=== PATIENT | female | born 1940 | race Caucasian/White ===

== ENCOUNTER 2023-09-16 08:14 | Emergency (ER) | payer MEDICARE ==
[2023-09-16 08:22] VITALS: RESP 18; TEMP 97.3
[2023-09-16] MEDS: SODIUM CHLORIDE 0.9% 1,000 ML IV STA (08:40)
--- NOTE | 2023-09-16 08:42 | ED ---
Syncope HPI - General Chief Complaint: Syncope Stated Complaint: syncope,arm lac Time Seen by Provider: 09/16/23 08:22 Source: patient, RN notes reviewed Mode of arrival: wheelchair Limitations: no limitations - History of Present Illness Initial Comments: This is an 83 year old female who presents to the emergency department for a syncopal episode. Patient lives in [place] and a couple of days ago flew into [place]. After getting off of the plane she had a syncopal episode. Over the last couple of days she has had more syncopal episodes, lasting anywhere from a couple of seconds to a couple of minutes. Unsure if she hit her head this time, but has hit her head in the past. Not taking any blood thinners. Currently complaining of pain to the right lower leg and right arm where she has skin tears. She feels the syncopal episodes coming on, but states that it happens very quickly. Denies any chest pain or shortness of breath associated with this. States that she has a brain tumor but is unsure what kind. She has been on various medications for this and 5 days ago was started on Memantine, which she believes may be the cause of the syncopal episodes. Prior to the last few days she has never experienced syncopal episodes. - Related Data Previous Rx's Medication Instructions Recorded cefUROXime axetiL [Ceftin] 500 mg PO BID 7 Days #14 tab 09/16/23 Allergies Allergy/AdvReac Type Severity Reaction Status Date / Time codeine AdvReac Rapid Verified 09/16/23 08:22 Heart Rate Review of Systems ROS Statement: Those systems with pertinent positive or pertinent negative responses have been documented in the HPI. ROS Other: All systems not noted in ROS Statement are negative. Past Medical History Past Medical History: Hypertension, Thyroid Disorder Additional Past Surgical History / Comment(s): right hip replacement Past Psychological History: No Psychological Hx Reported Smoking Status: Former smoker Past Alcohol Use History: Rare Past Drug Use History: None Reported General Exam Limitations: no limitations General appearance: alert, in no apparent distress Head exam: Present: atraumatic, normocephalic, normal inspection Eye exam: Present: normal appearance, PERRL, EOMI. Absent: scleral icterus, conjunctival injection, periorbital swelling Respiratory exam: Present: normal lung sounds bilaterally. Absent: respiratory distress, wheezes, rales, rhonchi, stridor Cardiovascular Exam: Present: regular rate, normal rhythm, normal heart sounds. Absent: systolic murmur, diastolic murmur, rubs, gallop, clicks Extremities exam: Present: other (Skin tears over the bilateral shins and right forearm. No active bleeding. Full ROM of all extremities.) Neurological exam: Present: alert, oriented X3, CN II-XII intact Psychiatric exam: Present: normal affect, normal mood Course Vital Signs 09/16/23 09/16/23 09/16/23 08:16 09:27 10:25 Temperature 97.3 F L Pulse Rate 50 L 60 59 L Respiratory 18 18 18 Rate Blood Pressure 158/59 171/68 185/73 O2 Sat by Pulse 99 99 96 Oximetry 09/16/23 10:57 Temperature Pulse Rate 62 Respiratory 18 Rate Blood Pressure 174/84 O2 Sat by Pulse 97 Oximetry Medical Decision Making - Medical Decision Making This is an 83 year old female who presents to the emergency department for a syncopal episode. Was pt. sent in by a medical professional or institution? @ -No Did you speak to anyone other than the patient for history? @ -Her friend provided the information about the episodes lasting from a couple of seconds to a few minutes. Did you review nursing and triage notes? @ -Yes, and I agree, it is accurate with regards to the patient's symptoms. Were old charts reviewed? @ -No Differential Diagnosis? @ -Differential Syncope: Valvular disease, hypertrophic cardiomyopathy, pulmonary embolism, tamponade, tachycardia, bradycardia, CT, hypovolemia, hemorrhage, dissection, anemia, intracranial hemorrhage, seizure, hypoglycemia, carbon monoxide poisoning, this is not meant to be an all-inclusive list. EKG interpreted by me (3pts min.)? @ -EKG interpreted by me demonstrating the following: Sinus bradycardia. Ventricular rate 51 BPM, DE interval 162 ms, QRS duration 102 ms, QTc 410 ms. X-rays interpreted by me (1pt min.)? @ -Chest x-ray obtained. My interpretation identifies no localized consolidations or infiltrates. X-ray of the bilateral tib/fib and right forearm obtained. My interpretation identifies no acute fractures. CT interpreted by me (1pt min.)? @ -CT scan of the brain obtained. My interpretation identifies no evidence of an acute intracranial hemorrhage or mass effect. U/S interpreted by me (1pt. min.)? @ -Not obtained What testing was considered but not performed? (CT, X-rays, U/S, labs)? Why? @ -None What meds were considered but not given? Why? @ -None Did you discuss the management of the patient with other professionals? @ -No Did you reconcile home meds? @ -No Was smoking cessation discussed for >3mins.? @ -No Was critical care preformed (if so, how long)? @ -No Were there social determinants of health that impacted care today? How? (Homelessness, low income, unemployed, alcoholism, drug addiction, transportation, low edu. Level, literacy, decrease access to med. care, [facility], rehab)? @ -No Was there de-escalation of care discussed even if they declined? (Discuss DNR or withdrawal of care, Hospice)? @ -No What co-morbidities impacted this encounter? (DM, HTN, Smoking, COPD, CAD, Cancer, CVA, Hep., AIDS, mental health diagnosis, sleep apnea, morbid obesity)? @ -HTN, thyroid disorder Was patient admitted / discharged? @ -Lab work demonstrates a low TSH, however free T4 is within normal limits. Patient is already being treated for hypothyroidism. Lab work is otherwise unremarkable. Urinalysis suggestive of possible infection. Urine sent for culture. CT scan of the brain reveals no acute process. Patient's report of a brain tumor was not identified on this imaging. Chest x-ray reveals no acute process. She had superficial skin tears on the bilateral tib-fib and right forearm. X-rays of those areas were also unremarkable. Tetanus vaccine was updated. Skin tears were cleansed and bandaged. Discussed with the patient that the new medication she is on has been shown to cause fainting, however this cannot be confirmed in her case at this time and given her age, we discussed the possibility of cardiac arrhythmias or other potentially lethal etiologies contributing to the syncopal episodes. Because of this I did strongly advise admission for further evaluation and management. Patient however refused and states that she felt fine. Patient subsequently signed out AMA and was given strict return parameters. She was started on cefuroxime for potential UTI and ceftriaxone was administered in the emergency department prior to her leaving. I did recommend she discuss these episodes with the provider who is prescribing the new medication to get their input on these episodes and see if they think she should discontinue it. Undiagnosed new problem with uncertain prognosis? @ -None Drug Therapy requiring intensive monitoring for toxicity (Heparin, Nitro, Insulin, Cardizem)? @ -None Were any procedures done? @ -None Diagnosis/symptom? @ -Syncope, skin tears, UTI Acute, or Chronic, or Acute on Chronic? @ -Acute Uncomplicated (without systemic symptoms) or Complicated (systemic symptoms)? @ -Uncomplicated Side effects of treatment? @ -None Exacerbation, Progression, or Severe Exacerbation] @ -Not applicable Poses a threat to life or bodily function? @ -Unclear, this will depend on the cause This case was discussed in detail with the attending ED physician, Dr. Salazar. Presentation, findings, and treatment plan discussed in detail as well. - Lab Data Result diagrams: 09/16/23 08:37 09/16/23 08:37 Lab Results 09/16/23 09/16/23 09/16/23 Range/Units 08:37 08:37 08:37 WBC 9.0 (3.8-10.6) k/uL RBC 4.58 (3.80-5.40) m/uL Hgb 14.1 (11.4-16.0) gm/dL Hct 43.2 (34.0-46.0) % MCV 94.3 (80.0-100.0) fL MCH 30.8 (25.0-35.0) pg MCHC 32.7 (31.0-37.0) g/dL RDW 13.1 (11.5-15.5) % Plt Count 344 (150-450) k/uL MPV 7.6 Neutrophils % 80 % Lymphocytes % 11 % Monocytes % 7 % Eosinophils % 1 % Basophils % 0 % Neutrophils # 7.2 (1.3-7.7) k/uL Lymphocytes # 1.0 (1.0-4.8) k/uL Monocytes # 0.6 (0-1.0) k/uL Eosinophils # 0.1 (0-0.7) k/uL Basophils # 0.0 (0-0.2) k/uL PT 11.1 (10.0-12.5) sec INR 1.0 (<1.2) APTT 22.2 (22.0-30.0) sec Sodium 139 (137-145) mmol/L Potassium 4.0 (3.5-5.1) mmol/L Chloride 103 (98-107) mmol/L Carbon Dioxide 29 (22-30) mmol/L Anion Gap 7 mmol/L BUN 21 H (7-17) mg/dL Creatinine 0.92 (0.52-1.04) mg/dL Est GFR (CKD-EPI)AfAm 67 (>60 ml/min/1.73 sqM) Est GFR (CKD-EPI)NonAf 58 (>60 ml/min/1.73 sqM) Glucose 108 H (74-99) mg/dL Calcium 10.1 (8.4-10.2) mg/dL Magnesium 1.7 (1.6-2.3) mg/dL Total Bilirubin 0.6 (0.2-1.3) mg/dL AST 42 H (14-36) U/L ALT 27 (4-34) U/L Alkaline Phosphatase 67 (38-126) U/L Troponin I (0.000-0.034) ng/mL Total Protein 7.2 (6.3-8.2) g/dL Albumin 4.3 (3.5-5.0) g/dL TSH 0.282 L (0.465-4.680) mIU/L Free T4 1.46 (0.78-2.19) ng/dL Urine Color Urine Appearance (Clear) Urine pH (5.0-8.0) Ur Specific [place] (1.001-1.035) Urine Protein (Negative) Urine Glucose (UA) (Negative) Urine Ketones (Negative) Urine Blood (Negative) Urine Nitrite (Negative) Urine Bilirubin (Negative) Urine Urobilinogen (<2.0) mg/dL Ur Leukocyte Esterase (Negative) Urine WBC (0-5) /hpf Ur Squamous Epith Cells (0-4) /hpf Urine Bacteria (None) /hpf Urine Mucus (None) /hpf 09/16/23 09/16/23 Range/Units 08:37 08:38 WBC (3.8-10.6) k/uL RBC (3.80-5.40) m/uL Hgb (11.4-16.0) gm/dL Hct (34.0-46.0) % MCV (80.0-100.0) fL MCH (25.0-35.0) pg MCHC (31.0-37.0) g/dL RDW (11.5-15.5) % Plt Count (150-450) k/uL MPV Neutrophils % % Lymphocytes % % Monocytes % % Eosinophils % % Basophils % % Neutrophils # (1.3-7.7) k/uL Lymphocytes # (1.0-4.8) k/uL Monocytes # (0-1.0) k/uL Eosinophils # (0-0.7) k/uL Basophils # (0-0.2) k/uL PT (10.0-12.5) sec INR (<1.2) APTT (22.0-30.0) sec Sodium (137-145) mmol/L Potassium (3.5-5.1) mmol/L Chloride (98-107) mmol/L Carbon Dioxide (22-30) mmol/L Anion Gap mmol/L BUN (7-17) mg/dL Creatinine (0.52-1.04) mg/dL Est GFR (CKD-EPI)AfAm (>60 ml/min/1.73 sqM) Est GFR (CKD-EPI)NonAf (>60 ml/min/1.73 sqM) Glucose (74-99) mg/dL Calcium (8.4-10.2) mg/dL Magnesium (1.6-2.3) mg/dL Total Bilirubin (0.2-1.3) mg/dL AST (14-36) U/L ALT (4-34) U/L Alkaline Phosphatase (38-126) U/L Troponin I <0.012 (0.000-0.034) ng/mL Total Protein (6.3-8.2) g/dL Albumin (3.5-5.0) g/dL TSH (0.465-4.680) mIU/L Free T4 (0.78-2.19) ng/dL Urine Color Light Yellow Urine Appearance Clear (Clear) Urine pH 6.5 (5.0-8.0) Ur Specific [place] 1.010 (1.001-1.035) Urine Protein Negative (Negative) Urine Glucose (UA) Negative (Negative) Urine Ketones Negative (Negative) Urine Blood Negative (Negative) Urine Nitrite Negative (Negative) Urine Bilirubin Negative (Negative) Urine Urobilinogen <2.0 (<2.0) mg/dL Ur Leukocyte Esterase Large H (Negative) Urine WBC 20 H (0-5) /hpf Ur Squamous Epith Cells 4 (0-4) /hpf Urine Bacteria Occasional H (None) /hpf Urine Mucus Rare H (None) /hpf - Radiology Data Radiology results: report reviewed, image reviewed Disposition Clinical Impression: Syncope, UTI (urinary tract infection), Skin tear Disposition: LEFT AGAINST MEDICAL ADVICE Instructions (If sedation given, give patient instructions): Urinary Tract Infection in Women (ED), Syncope (ED) Additional Instructions: Return to the emergency department with any new, worsening, or concerning symptoms. Take the antibiotic as prescribed for 7 days. Contact the provider who prescribed the memantine and let them know that you have been fainting and see if they recommend discontinuing this for a few days to see if symptoms improve. Prescriptions: cefUROXime axetiL [Ceftin] 500 mg PO BID 7 Days #14 tab Is patient prescribed a controlled substance at d/c from ED?: No Referrals: Nonstaff,Physician [Primary Care Provider] - 1-2 days Time of Disposition: 10:37
--- NOTE | 2023-09-16 08:59 | CT ---
EXAMINATION TYPE: CT brain wo con CT DLP: 1095.4 mGycm, Automated exposure control for dose reduction was used. DATE OF EXAM: 09/16/2023 8:52 AM COMPARISON: None. CLINICAL INDICATION:Female, 83 years old with history of syncope, syncope TECHNIQUE: Brain: Axial CT images of the brain were obtained with coronal and sagittal reformats created and rev iewed. Contrast used: None. Oral contrast used: None. FINDINGS: Brain: Extra-axial spaces: No abnormal extra-axial fluid collections. Ventricular system: Dilatation in proportion to cerebral atrophy. Cerebral parenchyma: Cerebral atrophy. No acute intraparenchymal hemorrhage or mass effect. The petit -white junction is well differentiated. Scattered hypoattenuating areas are seen within the white mat ter. Cerebellum: Unremarkable. Mass effect: No evidence of midline shift. Intracranial vasculature: unremarkable Soft tissues: Normal. Calvarium/osseous structures: No depressed skull fracture. Paranasal sinuses and mastoid air cells: Mild scattered paranasal sinus disease. Visualized orbits: Posttreatment changes to the left globe right aphakia. IMPRESSION: 1. No acute intracranial process. 2. Nonspecific white matter changes, likely secondary to chronic small vessel ischemic disease.
[2023-09-16 09:05] LABS: Basophils % (A) 0 %; Eosinophils # (A) 0.1 k/uL (0-0.7); Eosinophils % (A) 1 %; HCT 43.2 % (34.0-46.0); HGB 14.1 gm/dL (11.4-16.0); Lymphocytes % (A) 11 %; MCH 30.8 pg (25.0-35.0); MCHC 32.7 g/dL (31.0-37.0); MCV 94.3 fL (80.0-100.0); Mean Platelet Volume 7.6; Monocytes # (A) 0.6 k/uL (0-1.0); Monocytes % (A) 7 %; Neutrophils # (A) 7.2 k/uL (1.3-7.7); Neutrophils % (A) 80 %; Platelet Count 344 k/uL (150-450); RBC 4.58 m/uL (3.80-5.40); RDW 13.1 % (11.5-15.5)
[2023-09-16 09:07] LABS: Partial Thromboplastin Time 22.2 sec (22.0-30.0); Prothrombin Time 11.1 sec (10.0-12.5)
[2023-09-16 09:11] LABS: ALT 27 U/L (4-34); AST 42 U/L (14-36); African American GFR (CKD) 67 (>60 ml/min/1.73 sqM); Albumin 4.3 g/dL (3.5-5.0); Alkaline Phosphatase 67 U/L (38-126); Anion Gap 7 mmol/L; Blood Urea Nitrogen 21 mg/dL (7-17); Calcium 10.1 mg/dL (8.4-10.2); Carbon Dioxide 29 mmol/L (22-30); Chloride 103 mmol/L (98-107); Glucose 108 mg/dL (74-99); Magnesium 1.7 mg/dL (1.6-2.3); Non-African American GFR(CKD) 58 (>60 ml/min/1.73 sqM); Sodium 139 mmol/L (137-145); Total Bilirubin 0.6 mg/dL (0.2-1.3); Total Protein 7.2 g/dL (6.3-8.2)
[2023-09-16] MEDS: DIPH,PERTUS(ACELL)TETVAC-LF 0.5 ML VIAL IM ONE (09:26)
--- NOTE | 2023-09-16 09:41 | XR ---
EXAMINATION TYPE: XR chest 2V, XR tibia fibula 2 views bilateral, XR forearm 2 views RT DATE OF EXAM: 09/16/2023 COMPARISON: None HISTORY: 83-year-old female pain after fall, syncope FINDINGS: Chest: The cardiomediastinal silhouette, aorta, and pulmonary vasculature are within normal limits. Lungs an d pleural spaces are clear. Moderate degenerative change of both shoulders. Right forearm: No elbow joint effusion. Some mild synovial calcification along the lateral aspect of the radiocapite llar joint incidentally noted. Corticated ossific density adjacent to the ulnar styloid process. Anil tional synovial calcification at the wrist. The calcifications could be idiopathic or could reflect C PPD. Moderate degenerative change first CMC joint. No acute fracture. Tibia/fibula bilateral: Meniscal chondrocalcinosis. Some degenerative spurring particularly in the medial compartment of righ t knee. Some vascular calcifications on both sides. Some ossification involving the bilateral Andre s tendons compatible chronic tendinopathy and old injury. No acute fracture. IMPRESSION: 1. Chest: No acute cardiopulmonary process. 2. 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 No acute osseous abnormality seen. 3. Tibia/fibula bilateral: Chronic Achilles tendinopathy. Some scattered mild degenerative spurring a t the knees, particularly on the right. No acute osseous abnormality seen.
[2023-09-16 09:51] LABS: Appearance,Urine Clear (Clear); Bacteria,Urine Occasional /hpf; Bilirubin,Urine Negative (Negative); Blood,Urine Negative (Negative); Color,Urine Light Yellow; Glucose,Urine (UA) Negative (Negative); Ketones,Urine Negative (Negative); Leukocyte Esterase,Urine Large (Negative); Mucus,Urine Rare /hpf; Nitrite,Urine Negative (Negative); PH, Urine 6.5 (5.0-8.0); Protein,Urine Negative (Negative); Squamous Epithelial Cell,Urine 4 /hpf (0-4); Urobilinogen,Urine <2.0 mg/dL (<2.0); WBC,Urine 20 /hpf (0-5)
[2023-09-16 10:24] LABS: T4, Free (Free Thyroxine) 1.46 ng/dL (0.78-2.19)
[2023-09-16] MEDS: cefTRIAXone IN SWFI 1,000 MG/10 ML SYRINGE IVP STA (10:56)
[2023-09-16 11:00] VITALS: BP 174/84; PULSE 62
== END 2023-09-16 11:00 | disposition left against medical advice (07) ==
LOC: EC 08:14
DX: S51.811A Laceration without foreign body of right forearm, initial encounter (principal); S81.811A Laceration without foreign body, right lower leg, initial encounter; S81.812A Laceration without foreign body, left lower leg, initial encounter; N39.0 Urinary tract infection, site not specified; R55 Syncope and collapse; Z87.891 Personal history of nicotine dependence; Z88.5 Allergy status to narcotic agent; Z23 Encounter for immunization; Z53.29 Procedure and treatment not carried out because of patient's decision for other reasons; X58.XXXA Exposure to other specified factors, initial encounter
CPT/HCPCS: 36415; 93005; 84439; 80053; 84443; 83735; 84484; 85025; 85610; 85730; 81001; 73590; 73090; 71046; 70450; 90715; 99285; 96374; 96361 ×2; 90471; J0696